=== PATIENT | female | born 1975 | race Caucasian/White ===

== ENCOUNTER 2018-03-19 14:00 | Emergency (ER) | payer OTHER ==
[2018-03-19] MEDS ORDERED: ASPIRIN 81 MG TABLET, CHEWABLE PO ONE (14:40)
--- NOTE | 2018-03-19 14:42 | ER Document Report ---
ED Medical Screen (RME) - General Chief Complaint: Chest Pain Stated Complaint: CHEST PAIN Time Seen by Provider: 03/19/18 14:40 Mode of Arrival: Ambulatory Information source: Patient Notes: This is a 42-year-old female with history of hypothyroidism who presents to the emergency room with constant dull aching left-sided nonradiating chest pain since 8:52 PM yesterday. It is not worse with exertion. It does appear worse with palpation and torso movement. Patient does not smoke. She does not know her family history (she is adopted). TRAVEL OUTSIDE OF THE [place] IN LAST 30 DAYS: No - Related Data Allergies/Adverse Reactions: No Known Allergies Allergy (Verified 03/19/18 14:00) Past Medical History - Social History Chew tobacco use (# tins/day): No Frequency of alcohol use: Social Drug Abuse: None Renal/ Medical History: Denies: Hx Peritoneal Dialysis Physical Exam - Vital signs Vitals: Temp Pulse Resp BP Pulse Ox 98.8 F 65 16 121/75 98 03/19/18 14:14 03/19/18 14:14 03/19/18 14:14 03/19/18 14:14 03/19/18 14:14 Course - Vital Signs Vital signs: Temp Pulse Resp BP Pulse Ox 98.8 F 65 16 121/75 98 03/19/18 14:14 03/19/18 14:14 03/19/18 14:14 03/19/18 14:14 03/19/18 14:14
[2018-03-19 15:14] LABS: ABSOLUTE EOSINOPHILS # (AUTO) 0.1 10^3/uL (0.0-0.6); ABSOLUTE LYMPHOCYTES (AUTO) 2.6 10^3/uL (0.5-4.7); ABSOLUTE MONOCYTES (AUTO) 0.8 10^3/uL (0.1-1.4); ABSOLUTE NEUT (AUTO) 6.1 10^3/uL (1.7-8.2); BASOPHILS % (AUTO) 0.2 % (0-2); EOSINOPHILS % (AUTO) 0.6 % (0-6); HEMATOCRIT 40.2 % (36.0-47.0); HEMOGLOBIN 14.1 g/dL (12.0-15.5); MEAN CORPUSCULAR HEMOGLOBIN 33.9 pg (27.0-33.4); MEAN CORPUSCULAR HGB CONC 35.2 g/dL (32.0-36.0); MEAN CORPUSCULAR VOLUME 97 fl (80-97); MONOCYTES % (AUTO) 8.2 % (3-13); PLATELET COUNT 237 10^3/uL (150-450); RED BLOOD COUNT 4.17 10^6/uL (3.72-5.28); RED CELL DISTRIBUTION WIDTH 12.2 % (11.5-14.0); TOTAL CELLS COUNTED % (AUTO) 100 %; WHITE BLOOD COUNT 9.5 10^3/uL (4.0-10.5)
[2018-03-19 15:39] LABS: ALANINE AMINOTRANSFERASE 54 U/L (9-52); ALBUMIN 4.4 g/dL (3.5-5.0); ALKALINE PHOSPHATASE 58 U/L (38-126); ANION GAP 12 (5-19); ASPARTATE AMINO TRANSFERASE 43 U/L (14-36); BILIRUBIN,DIRECT 0.2 mg/dL (0.0-0.4); BILIRUBIN,TOTAL 0.5 mg/dL (0.2-1.3); BLOOD UREA NITROGEN 16 mg/dL (7-20); CALCIUM 9.7 mg/dL (8.4-10.2); CARBON DIOXIDE 25 mmol/L (22-30); CHLORIDE 105 mmol/L (98-107); CREATINE KINASE 56 U/L (30-135); GLUCOSE 90 mg/dL (75-110); POTASSIUM 4.4 mmol/L (3.6-5.0); SODIUM 142.2 mmol/L (137-145); TOTAL PROTEIN 7.5 g/dL (6.3-8.2)
--- NOTE | 2018-03-19 15:45 | ER Document Report ---
ED Cardiac - General Chief Complaint: Chest Pain Stated Complaint: CHEST PAIN Time Seen by Provider: 03/19/18 14:40 Mode of Arrival: Ambulatory TRAVEL OUTSIDE OF THE [place] IN LAST 30 DAYS: No - HPI Patient complains to provider of: Other Use of: Other - This 42-year-old female presented for evaluation of discomfort in the left side of her chest which developed yesterday while at home after helping her nephew move into a dorm. She notes that it is just a slight discomfort, there is no associated diaphoresis nausea or emesis pain elsewhere shortness of breath or other symptoms, she has never had anything like this before, she is not have any known health problems, has no family members whose had heart attacks that she knows of. Nothing has made the pain any better or worse, she has not taken anything to try and help with it. - Related Data Allergies/Adverse Reactions: No Known Allergies Allergy (Verified 03/19/18 14:00) Past Medical History - General Information source: Patient - Social History Smoking Status: Never Smoker Chew tobacco use (# tins/day): No Frequency of alcohol use: Social Drug Abuse: None Family History: None Patient has suicidal ideation: No Patient has homicidal ideation: No Renal/ Medical History: Denies: Hx Peritoneal Dialysis Review of Systems - Review of Systems -: Yes All other systems reviewed and negative Physical Exam - Vital signs Vitals: Temp Pulse Resp BP Pulse Ox 98.8 F 65 16 121/75 98 03/19/18 14:14 03/19/18 14:14 03/19/18 14:14 03/19/18 14:14 03/19/18 14:14 - General General appearance: Appears well In distress: None - HEENT Head: Normocephalic Eyes: Normal Conjunctiva: Normal Cornea: Normal - Respiratory Respiratory status: No respiratory distress Chest status: Nontender Breath sounds: Normal Chest palpation: Normal - Cardiovascular Rhythm: Regular Heart sounds: Normal auscultation Murmur: No - Abdominal Inspection: Normal Distension: No distension Bowel sounds: Normal Tenderness: Nontender - Back Back: Normal - Extremities General upper extremity: Normal inspection General lower extremity: Normal inspection - Neurological Neuro grossly intact: Yes Cognition: Normal Orientation: AAOx4 [place] Coma Scale Eye Opening: Spontaneous Marc Coma Scale Verbal: Oriented Marc Coma Scale Motor: Obeys Commands Marc Coma Scale Total: 15 - Psychological Associated symptoms: Normal affect Course - Re-evaluation Re-evalutation: 03/19/18 17:06 This 42-year-old female presents for atypical chest pain which began yesterday after moving her nephew. She does not have any other health problems, has never had any issues with her heart in the past. Has no risk factors for thromboembolic disease. She is PERC negative, her heart score is 0. We will obtain troponins, will obtain chemistry count chest x-ray and reassess. Patient is symptom-free while at rest at this time, her pain is reproducible to palpation. - Vital Signs Vital signs: Temp Pulse Resp BP Pulse Ox 98.8 F 65 16 121/75 98 03/19/18 14:14 03/19/18 14:14 03/19/18 14:14 03/19/18 14:14 03/19/18 14:14 - Laboratory Result Diagrams: 03/19/18 14:53 03/19/18 14:53 Laboratory results interpreted by me: 03/19/18 03/19/18 14:53 14:53 MCH 33.9 H AST 43 H ALT 54 H Discharge - Discharge Clinical Impression: Chest wall pain Condition: Good Disposition: HOME, SELF-CARE Instructions: Chest Wall Pain ([facility]) Additional Instructions: You were seen today for your chest pain, he had an evaluation including a physical exam as well as 2 markers of damage to your heart, you had a chest x- ray none of them showed an obvious cause for your chest pain. It is likely that your chest pain is related to the muscle and bones of your chest. Return for any worsening shortness of breath chest pain and inability to eat or drink fevers or chills, contact your doctor about today's visit for continued monitoring moving forward. Referrals: DIANA BENITES MD [Primary Care Provider] - Follow up as needed
[2018-03-19 15:49] LABS: CREATINE KINASE MB 0.38 ng/mL (<4.55)
[2018-03-19 15:53] LABS: TROPONIN I < 0.012 ng/mL
--- NOTE | 2018-03-19 16:00 | RADIOLOGY REPORT (SQ) ---
EXAM DESCRIPTION: CHEST 2 VIEWS COMPLETED DATE/TIME: 03/19/2018 3:41 pm REASON FOR STUDY: cp COMPARISON: None. EXAM PARAMETERS: NUMBER OF VIEWS: two views TECHNIQUE: Digital Frontal and Lateral radiographic views of the chest acquired. RADIATION DOSE: NA LIMITATIONS: none FINDINGS: LUNGS AND PLEURA: No opacities, masses or pneumothorax. No pleural effusion. MEDIASTINUM AND HILAR STRUCTURES: No masses or contour abnormalities. HEART AND VASCULAR STRUCTURES: Heart normal size. No evidence for failure. BONES: No acute findings. HARDWARE: None in the chest. OTHER: No other significant finding. IMPRESSION: NO ACUTE RADIOGRAPHIC FINDING IN THE CHEST. TECHNICAL DOCUMENTATION: JOB ID: [id number] [employer]- All Rights Reserved Reading location - IP/workstation name: [email or web address]
--- NOTE | 2018-03-19 16:17 | EKG REPORT ---
SEVERITY:- ABNORMAL ECG - SINUS RHYTHM PROBABLE INFERIOR INFARCT, OLD : Confirmed by: Erick Cruz MD 19-Mar-2018 16:16:59
[2018-03-19 18:52] VITALS: BP 126/72
== END 2018-03-19 18:54 | disposition home or self-care (01) ==
LOC: ER 14:00
DX: R07.89 Other chest pain (principal)
CPT/HCPCS: 36415; 71046; 80053; 82550; 82553; 84484; 85025; 93005; 93010; 99285